=== PATIENT | male | born 1940 ===

== ENCOUNTER 2024-07-29 06:09 | Day surgery (SDC) | payer OTHER, SELFPAY ==
[2024-07-14 13:32] VITALS: BMI 24.4
[2024-07-14 14:31] LABS: Hematocrit 41.3 % (39.0-52.0); Hemoglobin 13.9 g/dL (13.0-18.0); Mean Corp Hgb Conc. 33.7 g/dL (33.0-37.0); Mean Corpuscular Hgb 30.4 pg (27.0-31.0); Mean Corpuscular Volume 90.4 fL (80.0-94.0); Mean Platelet Volume 10.5 fL (7.4-10.4); Platelet Count 219 10^3/uL (130-400); Red Blood Cell Count 4.57 10^6/uL (4.70-6.10); Red Cell Dist. Width 14.6 % (11.5-14.5); White Blood Cell Count 6.7 10^3/uL (4.8-10.8)
[2024-07-14 14:43] LABS: ALT (SGPT) 26 U/L (0-50); AST (SGOT) 31 U/L (17-59); Albumin 4.3 g/dl (3.5-5.0); Alkaline Phosphatase 57 U/L (38-126); Blood Urea Nitrogen 16 mg/dl (9-20); Calcium 9.1 mg/dl (8.4-10.2); Carbon Dioxide 23 mmol/L (22-30); Chloride 106 mmol/L (98-107); Estimated Creatinine Clearance 67 ml/min; Glucose 93 mg/dl (70-99); Potassium 4.6 mmol/L (3.5-5.1); Sodium 143 mmol/L (135-145); Total Bilirubin 0.6 mg/dl (0.2-1.3); Total Protein 6.9 g/dl (6.3-8.2); eGFR > 60.00
[2024-07-15 08:15] LABS: Glycohemoglobin (HgbA1c) 5.1 % (4.0-5.6)
[2024-07-23 09:54] VITALS: BMI 24.4
--- NOTE | 2024-07-27 10:19 | VNURNOTE ---
Patient is scheduled for an elective R TKA on 07/29/24- he reports he will stay overnight. Surgery will be by Dr Gaxiola. Spoke with patient prior to surgery. Introduced role of [facility] Liaison. Patient reports that he lives with his at [facility]. There is elevator access. No steps within apartment.
He has a rollator walker and cane. He states he will be given a rolling walker day of surgery.
He has never had VN services.
PCP is Dr Tish Guthrie.
Discussed post surgical plans.
Patient stated he will stay overnight and then go to outpt PT at [facility] in [place] on 08/03. Declining [facility] at this time. Liaison left contact number if plans change.
Patient states that his will be home with him and his daughter will pick him up day of surgery.
Plan: Outpt PT on 08/03
[2024-07-29] VITALS (14 sets, daily range): BP systolic 109–157; BP diastolic 63–98; PULSE 83; O2SAT 97; BMI 24.4
[2024-07-29] MEDS: TYLENOL 650 MG PO ×5 (07:05→23:14)
[2024-07-29] MEDS: VANCOCIN 200 IV ×2 (07:20→18:11)
[2024-07-29] MEDS: NEURONTIN 200 MG PO ×3 (10:07→21:19)
[2024-07-29] MEDS: FLOMAX 0.4 MG PO (10:07)
[2024-07-29] MEDS: ROXICODONE 5 MG PO ×2 (10:08→15:35)
[2024-07-29] MEDS: TYLENOL PO (10:17)
[2024-07-29] MEDS: NORMOSOL-R/PLASMALYTE-A 1000 IV (10:46)
--- NOTE | 2024-07-29 12:00 | PTCARENOTE ---
pt received from PACU, with PACU staff s/p rt TKA. pt is AAO x 3, c/o minor pain, refuses pain medicine. dressing to right knee is c/d/i with no visible drainage. sensation intact. SCD device initiated b/l
--- NOTE | 2024-07-29 13:34 | W.PN.ORTHO ---
Today's Communication / Plan
-
D/c when clinically stable.
Assessment
.
Distal Motor Intact: Yes
Dressing:
Small area of incisional bleeding at proximal part of dressing.
Assessment:
R knee OA s/p R TKA w/ Dr Gaxiola 07/29/24
DVT prophylaxis - ASA, b/l venous foot pumps
HTN - + parameters - monitor BP
CAD/NC s/p PCI w/ LAD stent 2020 � on Plavix and ASA
- Continue ASA but at 325 mg daily dosing x4 weeks for blood clot prevention
- Resume Plavix POD 2 if hemodynamically stable
RLE neuropathy and lumbar stenosis w/ chronic LBP - add Gabapentin
BPH w LUTS - monitor voids
- Add daily Flomax
MRSA + nasal swab pre-op - will add IV Vanco in addition to IV Ancef
- Continue nasal Mupirocin x2 weeks post-op
Dyslipidemia
Acute pancreatitis 2018
Migraines
SCC s/p MOHS
Dry macular degeneration
Anxiety
Did discuss Decadron for pain mgmt given ADR to Prednisone previously. He notes Prednisone reaction was remote. He reports to having an MISSAEL in the past and he did receive IV Decadron intra-op without issue. Given this, the patient feels
comfortable with trying Decadron 4 mg PO BID starting tonight. Will monitor for any ADRs
Plan
.
Surgery / Date: R TKA w/ Dr Gaxiola 07/29/24
DVT Prophylaxis: Aspirin
Activity:
Out of bed.
PT/OT
Discharge Plan: Home w/ Outpatient PT
Subjective
.
.:
Patient examined resting in bed.
R knee pain 'creeping up' but due for Oxycodone shortly.
Mild nausea post-procedure resolved.
Vital Signs and Labs
.
Vital Signs and Labs:
Lab Results
07/14/24 13:30
07/14/24 13:30
Temp Pulse Resp BP Pulse Ox
97.9 F 73 20 137/73 96
07/29/24 07:00 07/29/24 07:00 07/29/24 07:00 07/29/24 07:00 07/29/24 07:00
Physical Exam
-
HEENT: No pallor, cyanosis, or jaundice. Throat clear.
NECK: Supple. No JVD.
RESPIRATORY: Lungs clear to auscultation.
CVS: S1, S2 normal. RRR.�
ABDOMEN: Soft, non-tender. No distension.
EXTREMITIES: Strength equal, no calf pain with palpation/dorsiflexion. Calves soft.
SCRAP CHARGER: AOx3. No focal deficits. shoe puller grossly intact
[2024-07-29] MEDS: ANCEF 5 IV ×2 (14:32→23:13)
[2024-07-29] MEDS: LIDOCAINE 4% PATCH 2 PATCH TOPICAL (14:32)
[2024-07-29] MEDS: VITAMIN D3 (cholecalciferol) PO (15:21)
[2024-07-29] MEDS: ASPIRIN 325 MG PO (18:11)
[2024-07-29] MEDS: SENOKOT 17.2 MG PO (20:48)
[2024-07-29] MEDS: DECADRON 4 MG PO (20:49)
[2024-07-29] MEDS: COLACE 100 MG PO (20:49)
[2024-07-29] MEDS: BACTROBAN 2% OINTMENT 1 APPLIC NASAL (20:49)
[2024-07-29] MEDS: TORADOL 10 MG IV (21:18)
[2024-07-29] MEDS: PEPCID 20 MG PO (21:19)
[2024-07-29] MEDS: LIPITOR 40 MG PO (21:19)
[2024-07-29] MEDS: ROXICODONE 10 MG PO (23:17)
[2024-07-30 02:55] VITALS: BP 124/68
[2024-07-30] MEDS: TYLENOL 650 MG PO ×3 (03:07→12:10)
[2024-07-30 07:15] VITALS: BP 128/56
[2024-07-30] MEDS: ROXICODONE 5 MG PO (08:00)
[2024-07-30] MEDS: NEURONTIN 200 MG PO (08:01)
[2024-07-30] MEDS: VITAMIN D3 (cholecalciferol) 25 MCG PO (08:01)
[2024-07-30] MEDS: ASPIRIN 325 MG PO (08:02)
[2024-07-30] MEDS: DECADRON 4 MG PO (08:02)
[2024-07-30] MEDS: SENOKOT 17.2 MG PO (08:02)
[2024-07-30] MEDS: FLOMAX 0.4 MG PO ×2 (08:02→12:10)
[2024-07-30] MEDS: COLACE 100 MG PO (08:02)
[2024-07-30] MEDS: LIDOCAINE 4% PATCH 2 PATCH TOPICAL (08:03)
[2024-07-30] MEDS: BACTROBAN 2% OINTMENT 1 APPLIC NASAL (08:03)
[2024-07-30 09:20] VITALS: BP 116/62
--- NOTE | 2024-07-30 09:58 | W.PN.ORTHO ---
Today's Communication / Plan
-
Monitor incisional bleeding after TXA.
Await PT and OT recs.
D/c later today if clinically stable.
Assessment
.
Distal Motor Intact: Yes
Dressing:
Small areas of bleeding noted along incision line - will treat w/ TXA, pressure wrap (RICCARDO w/ ABDs).
Assessment:
R knee OA s/p R TKA w/ Dr Gaxiola 07/29/24
DVT prophylaxis - ASA, b/l venous foot pumps
HTN - + parameters - BPs stable
CAD/MD s/p PCI w/ LAD stent 2020 � on Plavix and ASA
- Continue ASA but at 325 mg daily dosing x4 weeks for blood clot prevention
- Resume Plavix POD 2 if remaining hemodynamically stable
RLE neuropathy and lumbar stenosis w/ chronic LBP - continue Gabapentin
BPH w/ LUTS - voiding but in small amounts post-op - not unusual for patient; does see Karli (urology) and did inquire about Flomax previously
- Given tolerability to Flomax, will Rx upon d/c
- Will encourage f/u w/ urology outpatient
MRSA + nasal swab pre-op - s/p IV Vanco in addition to IV Ancef
- Continue nasal Mupirocin x2 weeks post-op
Dyslipidemia
Acute pancreatitis 2018
Migraines
SCC s/p MOHS
Dry macular degeneration
Anxiety
Did discuss Decadron for pain mgmt given ADR to Prednisone previously. He notes Prednisone reaction was remote. He reports to having an MISSAEL in the past and he did receive IV Decadron intra-op without issue. Given this, the patient feels
comfortable with trying Decadron 4 mg PO BID -> update: pt tolerated Decadron well and without any visible ADRs. Will continue upon d/c.
Plan
.
Surgery / Date: R TKA w/ Dr Gaxiola 07/29/24
DVT Prophylaxis: Aspirin
Activity:
Out of bed.
PT/OT
Discharge Plan: Home w/ Outpatient PT
Subjective
.
.:
Patient resting comfortably in his chair.
R knee pain minimal w/ current pain meds.
Chronic urinary issues at baseline 2* BPH.
Eager for potential d/c today.
Vital Signs and Labs
.
Vital Signs and Labs:
Lab Results
07/14/24 13:30
07/14/24 13:30
Temp Pulse Resp BP Pulse Ox
98 F 61 15 128/56 97
07/30/24 07:15 07/30/24 08:05 07/30/24 07:15 07/30/24 08:05 07/30/24 07:15
Non-invasive Hgb result: 14
Physical Exam
-
HEENT: No pallor, cyanosis, or jaundice. Throat clear.
NECK: Supple. No JVD.
RESPIRATORY: Lungs clear to auscultation.
CVS: S1, S2 normal. RRR.
ABDOMEN: Soft, non-tender. No distension.
EXTREMITIES: Strength equal, no calf pain with palpation/dorsiflexion. Calves soft.
SURFACE SHIP USW SUPERVISOR: AOx3. No focal deficits. upholsterer outside grossly intact
--- NOTE | 2024-07-30 10:03 | CM ---
Met with pt at bedside
Pt reports he lives with his in independent living at [facility]; no steps to enter, FF set-up
Independent, active, ambulated with cane prior to admission, drives
DME - rolling walker, single point cane, rollator
SNF/HH - no past hx
Has ride home at discharge - daughter
PCP - Tish Guthrie
Pharm - [facility]
Pl[facility] to start [facility]. Has Rx
Plan - anticipate home with outpatient PT
[2024-07-30] MEDS: CYKLOKAPRON 1300 MG PO (10:09)
[2024-07-30 11:27] VITALS: BP 139/67
--- NOTE | 2024-07-30 11:59 | W.DS.TRANS ---
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
-
Discharge Instructions:
Sleep Apnea Risk Intermediate
Discharge Diagnosis/Procedures R knee OA s/p R TKA w/ Dr Gaxiola 07/29/24
Diet Other diet
Additional Diets Diabetic carb controlled x1 week for wound
healing/infection prevention
Activity As tolerated,With Walker
Driving Restrictions Not until seen by your Dr
Bathing Restrictions OK to Shower
Other Services PT
Wound Care Dressing to be removed 1 week post-surgery.
Instructions:
Stand-Alone Forms: Total Hip/Knee Replacement D/C
Changes to Home Medications: Yes
Discharge Medications:
DC Medications w/original date entered in [employer]
atorvastatin 40 mg tablet 40 mg PO HS 07/23/24
cholecalciferol (vitamin D3) 25 mcg (1,000 unit) tablet (Vitamin D3) 25 mcg PO DAILY 07/23/24
clopidogrel 75 mg tablet 75 mg PO DAILY 07/23/24
mecobalamin (vitamin B12) 1,000 mcg chewable tablet 1,000 mcg PO HS 07/23/24
nitroglycerin 0.4 mg sublingual tablet 0.4 mg sublingual Q5-15M PRN chest pain 07/23/24
vit C 250 mg-vit E 90 mg-zinc 40 mg-copper 1 [id number] capsule (PreserVision AREDS-2) 1 tab PO BID 07/23/24
acetaminophen 500 mg tablet (Tylenol Extra Strength) 1,000 mg (2 x 500 mg) PO Q6H #60 tabs 07/29/24
aspirin 325 mg tablet 325 mg PO DAILY #30 tabs 07/29/24
dexamethasone 4 mg tablet 4 mg PO Q12H Anti-inflammatory #7 tabs 07/29/24
docusate sodium 100 mg capsule 100 mg PO BID #30 caps 07/29/24
gabapentin 100 mg capsule 200 mg (2 x 100 mg) PO TID neuropathic pain #30 caps 07/29/24
lidocaine 4 % topical patch 2 patch topical DAILY #30 ea 07/29/24
lorazepam 0.5 mg tablet 0.5 mg PO DAILY PRN anxiety #1 tab 07/29/24
losartan 25 mg tablet 25 mg PO DAILY #1 tab 07/29/24
mupirocin 2 % topical ointment 1 applic intranasal BID #1 tube 07/29/24
ondansetron HCl 4 mg tablet 4 mg PO Q6H PRN nausea and vomiting #30 tabs 07/29/24
oxycodone 5 mg tablet 5 - 10 mg (1 - 2 x 5 mg) PO Q6H PRN moderate-severe pain #30 tabs 07/29/24
sennosides 8.6 mg tablet (Senna Laxative) 17.2 mg (2 x 8.6 mg) PO BID #30 tabs 07/29/24
tamsulosin 0.4 mg capsule 0.4 mg PO HS #30 caps 07/30/24
Home Medication Changes
acetaminophen 500 mg tablet (Tylenol Extra Strength) 1,000 mg (2 x 500 mg) PO Q6H #60 tabs 07/29/24
aspirin 325 mg tablet 325 mg PO DAILY #30 tabs 07/29/24
dexamethasone 4 mg tablet 4 mg PO Q12H Anti-inflammatory #7 tabs 07/29/24
docusate sodium 100 mg capsule 100 mg PO BID #30 caps 07/29/24
gabapentin 100 mg capsule 200 mg (2 x 100 mg) PO TID neuropathic pain #30 caps 07/29/24
lidocaine 4 % topical patch 2 patch topical DAILY #30 ea 07/29/24
mupirocin 2 % topical ointment 1 applic intranasal BID #1 tube 07/29/24 - continue for 2 weeks post-op
ondansetron HCl 4 mg tablet 4 mg PO Q6H PRN nausea and vomiting #30 tabs 07/29/24
oxycodone 5 mg tablet 5 - 10 mg (1 - 2 x 5 mg) PO Q6H PRN moderate-severe pain #30 tabs 07/29/24
sennosides 8.6 mg tablet (Senna Laxative) 17.2 mg (2 x 8.6 mg) PO BID #30 tabs 07/29/24
tamsulosin 0.4 mg capsule 0.4 mg PO HS #30 caps 07/30/24
Pending Results: No
[2024-07-30 12:32] VITALS: BP 125/63; PULSE 61; O2SAT 96
== END 2024-07-30 14:37 | disposition home or self-care (01) ==
LOC: SDS 06:09
PROVIDERS: ATTENDING PHYSICIAN Orthopaedic Surgery; FAMILY PHYSICIAN Internal Medicine Geriatric Medicine; REFERRING PHYSICIAN Internal Medicine Cardiovascular Disease
DX: M17.11 Unilateral primary osteoarthritis, right knee (principal)
CPT/HCPCS: 27447; 36415; 73560; 80053; 83036; 85027; 87070; 87147; 97110; 97116; 97162; 97166; C1713; C1776

== ENCOUNTER 2024-08-13 15:34 | Inpatient (IN) | payer OTHER, SELFPAY ==
[2024-08-13] VITALS (13 sets, daily range): BP systolic 120–137; BP diastolic 49–75; BMI 24.2; BMI 24.8
[2024-08-13 12:48] LABS: % Basophils 0.4 % (0-2); % Eosinophils 0.3 % (0-6); % Immature Granulocytes 0.4 % (0-0.5); % Lymphocytes 18.9 % (20.5-51.1); % Monocytes 6.6 % (1.7-9.3); % Neutrophils 73.4 % (42.2-75.2); Absolute Lymphocytes 1.9 10^3/uL (1.2-3.4); Absolute Monocytes 0.7 10^3/uL (0.1-0.6); Absolute Neutrophils 7.3 10^3/uL (1.4-6.5); Hematocrit 24.8 % (39.0-52.0); Hemoglobin 8.2 g/dL (13.0-18.0); Mean Corp Hgb Conc. 33.1 g/dL (33.0-37.0); Mean Corpuscular Hgb 30.8 pg (27.0-31.0); Mean Corpuscular Volume 93.2 fL (80.0-94.0); Mean Platelet Volume 9.2 fL (7.4-10.4); Nucleated Red Blood Cells % 0 % (-); Platelet Count 320 10^3/uL (130-400); Red Blood Cell Count 2.66 10^6/uL (4.70-6.10); Red Cell Dist. Width 17.6 % (11.5-14.5)
[2024-08-13 12:55] LABS: Blood Urea Nitrogen 29 mg/dl (9-20); Calcium 8.7 mg/dl (8.4-10.2); Carbon Dioxide 21 mmol/L (22-30); Chloride 105 mmol/L (98-107); Estimated Creatinine Clearance 89 ml/min; Glucose 103 mg/dl (70-99); Potassium 4.5 mmol/L (3.5-5.1); Sodium 138 mmol/L (135-145); eGFR > 60.00
[2024-08-13 13:30] LABS: ALT (SGPT) 30 U/L (0-50); AST (SGOT) 45 U/L (17-59); Albumin 3.7 g/dl (3.5-5.0); Alkaline Phosphatase 59 U/L (38-126); Direct Bilirubin 0.1 mg/dl (0.0-0.4); Total Bilirubin 0.8 mg/dl (0.2-1.3); Total Protein 6.1 g/dl (6.3-8.2)
--- NOTE | 2024-08-13 14:03 | CON.GI ---
Addendum entered and electronically signed by Jose Hubbard DO 08/13/24 17:20:
I saw and examined the patient.
The PASTEURIZER HELPER's note was reviewed and I agree with the note.
Comment: Mr Lopez is a 84 y.o male with past medical history of CAD (s/p stent, on plavix), choledocholithiasis (s/p ERCP, CCY), and recent RKA (on high dose ASA 325 mg and previous steroids) who presented to the ED with multiple episodes of
melena and symptomatic anemia. Last dose of plavix this AM. No other NSAIDs, does note taking ASA 325 mg q daily after his knee surgery and prior steroids (Dexamethasone). No prior history of GI bleeding in the past. Elevated BUN and Hgb 8s
concerning for non-variceal UGIB. HD-stable without compensatory tachycardia.
#Non-variceal, UGIB
Recommendations:
- Keep NPO
- Trend Hgb with serial CBC
- IV PPI 40 mg BiD
- Last dose of plavix this AM (08/13)
- Plan for diagnostic EGD tomorrow, 08/14/24, for further evaluation. Therapeutic intervention is limited given recent plavix (ie unable to perform cautery), however would still be helpful for prognostic purposes and potential intervention with
hemoclips if needed
- Avoidance of all NSAIDs
-Rest of care as outlined below
Original Note:
Consultation
-
Date/Time Consultation Requested: 08/13/24 1320
Date/Time Consultation Performed: 08/13/24 1400
Requesting Provider: Gabriel Serrato PA-C
Performing Provider: TONIE Newsome, Jose Hubbard DO
Reason for Consultation: anemia/weakness
Medical History
Chief Complaint / HPI
Chief Complaint: weakness
History of Present Illness:
Pt is a 84yo with hx CAD with prior stent on Plavix, prior PUD, colon polyps, prior ERCP for CBD stone, darling, BPH, rate bite fever with multiple recurrences, prior pancreatitis with unclear etiology, prior back surgery, with right TKR 07/30. He now
presents with weakness with noted hbg 13.9 on 07/14 pre op and now hbg 8.2 with BUN of 29. In review with patient he denies NSAID use with knee surgery except daily ASA 81mg was increased to 325mg daily. He also admits to several doses of
Dexamethasone after surgery but noted side effects with hiccups, sleep apnea and agitation with not completed course.
Pt currently admits to some nausea, decreased appetite, lightheadedness and black stool for 2 days. Pt with some bruising and swelling post TKR but now improving. He otherwise denies dysphagia, odynophagia, GERD, diarrhea, constipation, or red
stools. Pt with 2 stools for form over last 24 hours prior to admission.
Past Medical History
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
Past Surgical History: Cardiac (stent ), Cholecystectomy, Orthopedic (right TKR 07/29/24 , back surgery x 2 ), Tonsilectomy and Other (lens implant 1997, hernia repair)
Social History
Tobacco: Non-Smoker
Alcohol: Former (moderate ETOH 20 + years ago none currently)
Drug: Marijuana
Personal:
Living: With Family
Employment: Retired
Family History
Family History: Other (nom family hx GI malignancies )
Allergies / Home Medications
Allergy/AdvReac Type Severity Reaction Status Date / Time
ciprofloxacin Allergy Hallucinati Verified 07/29/24 06:54
ons
guaifenesin [From Mucinex D] Allergy Urinary Verified 07/29/24 06:54
Retention
haloperidol [From Haldol] Allergy Upper Body Verified 07/29/24 06:54
Paralysis
levofloxacin [From Levaquin] Allergy Hallucinati Verified 07/29/24 06:54
on
prednisone Allergy Syncope Verified 07/29/24 06:54
pseudoephedrine Allergy Urinary Verified 07/29/24 06:54
[From Mucinex D] Retention
red yeast rice Allergy Rash Verified 07/29/24 06:54
�Medication �Instructions �Recorded
atorvastatin 40 mg tablet 40 mg PO HS 07/23/24
cholecalciferol (vitamin D3) 25 25 mcg PO DAILY 07/23/24
mcg (1,000 unit) tablet (Vitamin
D3)
clopidogrel 75 mg tablet 75 mg PO DAILY 07/23/24
mecobalamin (vitamin B12) 1,000 1,000 mcg PO HS 07/23/24
mcg chewable tablet
nitroglycerin 0.4 mg sublingual 0.4 mg sublingual Q5-15M PRN chest 07/23/24
tablet pain
vit C 250 mg-vit E 90 mg-zinc 40 1 tab PO BID 07/23/24
mg-copper 1 [id number]
capsule (PreserVision AREDS-2)
acetaminophen 500 mg tablet 1,000 mg (2 x 500 mg) PO Q6H #60 07/29/24
(Tylenol Extra Strength) tabs
aspirin 325 mg tablet 325 mg PO DAILY #30 tabs 07/29/24
dexamethasone 4 mg tablet 4 mg PO Q12H Anti-inflammatory #7 07/29/24
tabs
docusate sodium 100 mg capsule 100 mg PO BID #30 caps 07/29/24
gabapentin 100 mg capsule 200 mg (2 x 100 mg) PO TID 07/29/24
neuropathic pain #30 caps
lidocaine 4 % topical patch 2 patch topical DAILY #30 ea 07/29/24
lorazepam 0.5 mg tablet 0.5 mg PO DAILY PRN anxiety #1 tab 07/29/24
losartan 25 mg tablet 25 mg PO DAILY #1 tab 07/29/24
mupirocin 2 % topical ointment 1 applic intranasal BID #1 tube 07/29/24
ondansetron HCl 4 mg tablet 4 mg PO Q6H PRN nausea and 07/29/24
vomiting #30 tabs
oxycodone 5 mg tablet 5 - 10 mg (1 - 2 x 5 mg) PO Q6H 07/29/24
PRN moderate-severe pain #30 tabs
sennosides 8.6 mg tablet (Senna 17.2 mg (2 x 8.6 mg) PO BID #30 07/29/24
Laxative) tabs
tamsulosin 0.4 mg capsule 0.4 mg PO HS #30 caps 07/30/24
Review of Systems
-
History Source: Patient and Family
Constitutional: Reports Other (decreased appetite )
EENT: Reports No Symptoms
Respiratory: Reports No Symptoms
Abdomen/GI: Reports Nausea and Black Stools
: Reports No Symptoms
Musculoskeletal: Reports Other (s/p TKR )
Skin: Reports Other (right knee bruising post replacement )
Neurological: Reports Weakness
Endocrine: Reports No Symptoms
Hematologic/Lymphatic: Reports Bleeding
Vital Signs
Temp Pulse Resp BP Pulse Ox
98.7 F 77 13 132/60 100
08/13/24 12:23 08/13/24 13:00 08/13/24 13:00 08/13/24 13:00 08/13/24 13:00
Physical Exam
Exam
General: Well Developed, Well Nourished and No Apparent Distress
HEENT: Normocephalic and Anicteric
Respiratory: Clear
Cardiac: Regular Rhythm
GI: Soft, Non Tender and Non Distended
Rectal: Hem Positive (black per review with ER)
Genito-urinary: No Costovertebral Tender
Musculoskeletal: No Clubbing and No Cyanosis
Skin: Warm and Dry
Neuro: Awake, Alert and AO x 3
Psych: Calm
Results
WBC 10.0 10^3/uL (4.8-10.8) 08/13/24 12:35
Hgb 8.2 g/dL (13.0-18.0) L 08/13/24 12:35
Hct 24.8 % (39.0-52.0) L 08/13/24 12:35
MCV 93.2 fL (80.0-94.0) 08/13/24 12:35
Plt Count 320 10^3/uL (130-400) 08/13/24 12:35
Absolute Neuts (auto) 7.3 10^3/uL (1.4-6.5) H 08/13/24 12:35
Sodium 138 mmol/L (135-145) 08/13/24 12:35
Potassium 4.5 mmol/L (3.5-5.1) 08/13/24 12:35
Chloride 105 mmol/L (98-107) 08/13/24 12:35
Carbon Dioxide 21 mmol/L (22-30) L 08/13/24 12:35
BUN 29 mg/dl (9-20) H 08/13/24 12:35
Creatinine 0.6 mg/dL (0.7-1.3) L 08/13/24 12:35
Calcium 8.7 mg/dl (8.4-10.2) 08/13/24 12:35
Total Bilirubin 0.8 mg/dl (0.2-1.3) 08/13/24 12:35
AST 45 U/L (17-59) 08/13/24 12:35
ALT 30 U/L (0-50) 08/13/24 12:35
Alkaline Phosphatase 59 U/L (38-126) 08/13/24 12:35
Diagnostic Image Results:
Prior GI Procedures:
completed in [place] and [place]
EGD: years ago with PUD
EGD: years ago for CBD stone
Colonoscopy: 7-8 in past for polyps last 2017 no further needed
Assessment / Plan
-
Pt is a 84yo with hx CAD with prior stent on Plavix, prior PUD, colon polyps, prior ERCP for CBD stone, darling, BPH, rate bite fever with multiple recurrences, prior pancreatitis with unclear etiology, prior back surgery, with right TKR 07/30. He now
presents with weakness with noted hbg 13.9 on 07/14 pre op and now hbg 8.2 with BUN of 29. In review with patient he denies NSAID use with knee surgery except daily ASA 81mg was increased to 325mg daily. He also admits to several doses of
Dexamethasone after surgery but noted side effects with hiccups, sleep apnea and agitation with not completed course.
-symptomatic anemia
-melena
-s/p TRK 07/30 with post -op steroid/increased ASA dose
-CAD with stent on Plavix prior to admission
-hx PUD
other med problems:
-hx colon polyps
-prior Darling/ERCP
-BPH
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
-pancreatitis x 1 etiology unclear
-multiple back surgery
PLAN:
etiology of black stools with anemia and elevated BUN related to PUD, increased ASA dose/several dose of steroid related to PUD vs some post-op blood loss vs other
t/c EGD will review timing with Dr. Hubbard and Dr. Augustine (rounding tomorrow) as Plavix last dose 08/13
no signs of aggressive GI bleeding 2 stools last 24 hours
trend hbg transfuse as needed
agree with PPI
ok for clear diet
family updated
NSAID avoidance--ok for ASA for now if needed
-
-
Thank you for consultation and allowing me to participate in the patient's care. Please call the [facility] physician during the after hours with any questions or concerns.
[2024-08-13] MEDS: NSS 1000 IV (14:12)
[2024-08-13] MEDS: PROTONIX IV 80 MG IV (14:13)
--- NOTE | 2024-08-13 14:27 | ED.GENMED ---
History of Present Illness
General
Chief Complaint: Abdominal Symptoms
Source: patient and family
Exam Limitations: none
Time Seen by Provider: 08/13/24 12:45
Nursing documentation reviewed up to this point in time: agreed with
History of Present Illness
History of Present Illness:
84-year-old male with Elvis history of hypertension hyperlipidemia previous heart attack currently on Plavix presenting to the emergency department today with concerns of black stool starting yesterday also notes that his blood pressure last night
was slightly low. Also had dyspnea on exertion over the past 2 days as well. Had knee surgery 2 weeks ago denies any issues at the time. Did take steroids no NSAIDs.
Review of Systems
Review of Systems
Allergies reviewed?: Yes
All Other Systems: ROS reviewed and negative except as documented in HPI and ROS
Phy Exam
Physical Exam
Physical Exam:
GENERAL: Alert , in no apparent distress
EYE: pupils equal and reactive
NECK: Supple, no significant adenopathy.
ENT: o/p clr, mmm.
CARDIAC: Regular rate and rhythm .
LUNGS: Clear breath sounds bilaterally, no acute respiratory distress, no wheezes/rales/rhonchi
ABDOMEN: Soft, without focal tenderness, no r/g, no cvat
Rectal; black stool guaiac positive
NEUROLOGICAL: Alert and oriented, no focal neuro deficits
SKIN: Warm and dry, skin intact.
MUSCULOSKELETAL: No edema, well perfused.
PSYCH: Normal and appropriate interaction.
Course
Orders/Labs/Results
Orders:
Orders
08/13/24 12:35
Complete Blood Count/With Diff Urgent
Comprehensive Metabolic Panel Urgent
Direct Bilirubin Urgent
08/13/24 13:13
Add On- LAB Urgent
Tests Added?: hepatic function panel
* Blood Bank Products Urgent
Blood Bank Products: *Packed RBC Leuko(PRBC's)
Quantity: 1
Transfuse Today: Yes
Reason: Bleeding
Pantoprazole [Protonix IV] 80 mg IV NOW STA
08/13/24 13:14
0.9% Sodium Chloride 1000 ml [Nss] 1,000 ml IV BOLUS
08/13/24 13:18
Type+Screen Urgent
08/13/24 14:08
ABO2 Urgent
BBK Wristband Number:
Associate notified that ABO2 has been ordered: [id number]
Date: 08/13/24
Time: 13:39
Director Of Public Health ID: [id number]
Abnormal Lab Results
08/13/24
12:35
RBC 2.66 L 10^6/uL
(4.70-6.10)
Hgb 8.2 L g/dL
(13.0-18.0)
Hct 24.8 L %
(39.0-52.0)
RDW 17.6 H %
(11.5-14.5)
Absolute Neuts (auto) 7.3 H 10^3/uL
(1.4-6.5)
Absolute Monos (auto) 0.7 H 10^3/uL
(0.1-0.6)
Lymphocytes % 18.9 L %
(20.5-51.1)
Carbon Dioxide 21 L mmol/L
(22-30)
BUN 29 H mg/dl
(9-20)
Creatinine 0.6 L mg/dL
(0.7-1.3)
Glucose 103 H mg/dl
(70-99)
Total Protein 6.1 L g/dl
(6.3-8.2)
08/13/24 12:35
08/13/24 12:35
Vital Signs
Initial and Last Documented VS:
Initial Vital Signs
Pulse Resp BP Pulse Ox
92 18 132/67 100
08/13/24 12:18 08/13/24 12:18 08/13/24 12:18 08/13/24 12:18
Last Documented Vital Signs
Temp Pulse Resp BP Pulse Ox
98.7 F 81 19 131/49 100
08/13/24 12:23 08/13/24 14:15 08/13/24 14:15 08/13/24 14:07 08/13/24 14:15
MDM/Problems Addressed
MDM/Problems Addressed:
84-year-old male presenting to the emergency department today with concerns of black stool since yesterday hypotensive last night shortness of breath with exertion over the past 2 days upon arrival vital signs are normal patient no distress does
have black stool. Hemoglobin obtained which was 8.21-month ago was 13.9. Concern for upper GI bleed BUN also elevated started on fluids written for a unit of blood and also started on Protonix. GI was immediately consulted. Admitted in stable
condition.
*Critical Care Note
Total Time (30-74mins, 75-104mins- exclusive of procedures): Not Applicable
comment:
Critical care statement: A total of 40 minutes of critical care time was provided for this patient. This includes management of unstable vital signs, evaluation of the patient at bedside, reviewing the patient's pertinent medical records, discussion
with consultants, review of old EKGs and review of pertinent medical records. This time with separate from time utilized to perform the aforementioned documented procedures
ED Attending Note
-
Portions of this chart may have been created with voice recognition software.� Occasional wrong word or��sound alike� substitutions may have occurred due to the inherent limitations of voice recognition software.
Discharge Plan
Departure
Patient Disposition: Admit
Date of Disposition: 08/13/24
Time of Disposition: 14:35
Admit to: ICU
Admit to doctor: Sahra
Presentation/result/management discussed w/ accepting MD/DO: Hospitalist
Patient with high blood pressure during this ER visit?: No
Condition: Good
Covid-19: Not Applicable
Discharge Problem:
UGIB (upper gastrointestinal bleed), Anemia
Prescriptions:
No Action
atorvastatin 40 mg Tablet
40 mg PO HS
clopidogrel 75 mg Tablet
75 mg PO DAILY
nitroglycerin 0.4 mg Tablet, Sublingual
0.4 mg SUBLINGUAL Q5-15M PRN (Reason: chest pain)
cholecalciferol (vitamin D3) [Vitamin D3] 25 mcg (1,000 unit) Tablet
25 mcg PO DAILY
PreserVision AREDS-2 250-90-40-1 mg Capsule
1 tab PO BID
mecobalamin (vitamin B12) 1,000 mcg Tablet,Chewable
1,000 mcg PO HS
aspirin 325 mg Tablet
325 mg PO DAILY Qty: 30 0RF
Rx Instructions:
Take daily x4 weeks for blood clot prevention; then resume Aspirin 81 mg daily.
lidocaine 4 % Adhesive Patch,Medicated
2 patch topical DAILY Qty: 30 0RF
Rx Instructions:
Over the counter. 12 hours on, 12 hours off.
Apply to sides of R knee/thigh.
docusate sodium 100 mg Capsule
100 mg PO BID Qty: 30 0RF
lorazepam 0.5 mg Tablet
0.5 mg PO DAILY PRN (Reason: anxiety) Qty: 1 0RF
gabapentin 100 mg Capsule
200 mg PO TID Qty: 30 0RF
oxycodone 5 mg Tablet
5 - 10 mg PO Q6H PRN (Reason: moderate-severe pain) Qty: 30 0RF
Rx Instructions:
1 tab for moderate pain, 2 if severe.
Dx total joint
sennosides [Senna Laxative] 8.6 mg Tablet
17.2 mg PO BID Qty: 30 0RF
mupirocin 2 % ointment
1 applic intranasal BID Qty: 1 0RF
acetaminophen [Tylenol Extra Strength] 500 mg tablet
1,000 mg PO Q6H Qty: 60 0RF
Rx Instructions:
DO NOT exceed >4000 mg daily.
ondansetron HCl 4 mg tablet
4 mg PO Q6H PRN (Reason: nausea and vomiting) Qty: 30 0RF
Rx Instructions:
Prescribed by surgeon's office pre-op.
dexamethasone 4 mg tablet
4 mg PO Q12H Qty: 7 0RF
Rx Instructions:
Restart night of discharge and continue every 12 hours until finished.
Take with food.
losartan 25 mg Tablet
25 mg PO DAILY Qty: 1 0RF
Rx Instructions:
HOLD IF systolic blood pressure <130 while on Oxycodone
tamsulosin 0.4 mg capsule
0.4 mg PO HS Qty: 30 0RF
Rx Instructions:
Take nightly to prevent urinary retention.
HOLD if systolic blood pressure <100.
Referrals:
Tish Guthrie MD [Family Provider] -
Interventions
Interventions:
*Risk Screen - Suicide Last Done: 08/13/24 12:31
*General Assessment Last Done: 08/13/24 12:29
*Neglect/Abuse Screening Last Done: 08/13/24 12:29
*ED COVID-19 Vaccine History Last Done: 08/13/24 12:23
NM-Srzokv-Bwihmzmolu Assessment Last Done: 08/13/24 12:31
Discharge Date and Time
Print Language: VINCENTIAN
--- NOTE | 2024-08-13 15:08 | HPS.HSE ---
Family Physician
-
Family Physician: Tish Guthrie
Chief Complaint
-
Black melanotic stool and fatigue.
History of Present Illness
Patient is a 84 years old male with history of coronary artery disease with MT and stent who is on dual antiplatelet therapy for life, recent right knee total arthroplasty who presents to emergency room with complaints of black stools for 2 days.
Patient noted to be generally weak. Denies any chest pain, shortness of breath, syncope. He has mild nausea, but denies abdominal pain or discomfort. He had 2 black bowel movements yesterday and 1 at the day of presentation. He has been on
aspirin and Plavix since his heart attack 4 years ago when he underwent PCI at [facility] with stent placement. He was told that he will be on Plavix for the rest of the life.
In the emergency room patient is hemodynamically stable with no evidence of tachycardia.
Medical History
Past Medical History
Past Medical History: Reports CAD (With history of MT and stent), HTN, Hypercholesterolemia and Other (BPH with history of retention)
Past Surgical History: Reports Other (Right total knee arthroplasty for severe osteoarthritis 07/30)
Social History
Tobacco: Non-smoker
Drug: None
Personal:
Living: With Family
Family History
Family History: Not pertinent
Allergies / Home Medications
Allergies reflects when Allergies were last updated in [employer].
Home Medications with original date entered in [employer]
Allergy/Medication List:
Allergies
Allergy/AdvReac Type Severity Reaction Status Date / Time
ciprofloxacin Allergy Hallucinati Verified 07/29/24 06:54
ons
guaifenesin [From Mucinex D] Allergy Urinary Verified 07/29/24 06:54
Retention
haloperidol [From Haldol] Allergy Upper Body Verified 07/29/24 06:54
Paralysis
levofloxacin [From Levaquin] Allergy Hallucinati Verified 07/29/24 06:54
on
prednisone Allergy Syncope Verified 07/29/24 06:54
pseudoephedrine Allergy Urinary Verified 07/29/24 06:54
[From Mucinex D] Retention
red yeast rice Allergy Rash Verified 07/29/24 06:54
Home Medications
atorvastatin 40 mg tablet 40 mg PO MOWEFR High Cholesterol 07/23/24
cholecalciferol (vitamin D3) 25 mcg (1,000 unit) tablet (Vitamin D3) 25 mcg PO DAILY Supplement 07/23/24
vit C 250 mg-vit E 90 mg-zinc 40 mg-copper 1 [id number] capsule (PreserVision AREDS-2) 1 tab PO BID Supplement 07/23/24
acetaminophen 500 mg tablet (Tylenol Extra Strength) 1,000 mg PO Q6H pain 08/13/24
aspirin 325 mg tablet 325 mg PO DAILY Blood Clot Prevention/Tx 08/13/24
atorvastatin 40 mg tablet (Lipitor) 20 mg PO SUTUTHSA High Cholesterol 08/13/24
clopidogrel 75 mg tablet (Plavix) 75 mg PO DAILY Blood Clot Prevention/Tx 08/13/24
docusate sodium 100 mg capsule 100 mg PO BIDPRN PRN constipation 08/13/24
lorazepam 0.5 mg tablet 0.5 mg PO BIDPRN PRN anxiety 08/13/24
losartan 25 mg tablet 25 mg PO DAILY Blood Pressure 08/13/24
tamsulosin 0.4 mg capsule 0.4 mg PO HS Urinary Issue 08/13/24
Review of Systems
-
A 12 point ROS was completed and negative except as noted: Yes
Constitutional: Reports Fatigue
Respiratory: Reports No Symptoms
Cardiac: Reports No Symptoms
Abdomen/GI: Reports See HPI
: Reports No Symptoms
Physical Exam
Vital Signs
Vital Signs
Temp Pulse Resp BP Pulse Ox
98.7 F 81 19 131/49 100
08/13/24 12:23 08/13/24 14:15 08/13/24 14:15 08/13/24 14:07 08/13/24 14:15
Physical Exam
General: Well Developed, Well Nourished and No Apparent Distress
HEENT: NormoCephalic, Moist mucous membranes and Atraumatic
Respiratory: Clear
Cardiac: S1/S2 and Regular Rhythm; No Murmur or Rub
GI: Soft, Non Tender, Non Distended and Normal Bowel Sounds; No Organomegaly
Rectal: Deferred by Provider
Musculoskeletal: No Clubbing, No Cyanosis and No Edema
Skin: No Rash
Neuro: Nonfocal/grossly intact
Laboratory Results
-
08/13/24 12:35
08/13/24 12:35
Laboratory Results
Total Bilirubin 0.8 mg/dl (0.2-1.3) 08/13/24 12:35
AST 45 U/L (17-59) 08/13/24 12:35
ALT 30 U/L (0-50) 08/13/24 12:35
Alkaline Phosphatase 59 U/L (38-126) 08/13/24 12:35
Impression/Plan
-
IMPRESSION:
Presentation with melena and fatigue.
Acute gastrointestinal hemorrhage suspect upper GI source.
Acute blood loss anemia.
Conditions prior to admission:
CAD/myocardial infarction status post left anterior descending stent 2020 on Plavix and aspirin G[employer]MENT [employer]ER.
Essential hypertension.
BPH with history of retention
Status post right knee arthroplasty 07/30
PLAN:
Acute gastrointestinal hemorrhage suspect upper GI source given presentation with melanotic stools and elevated BUN.
Hemodynamically stable
Acute blood loss anemia with hemoglobin down to 8.2 (13.9 on 07/30)
Intestinal hemorrhage most likely related to ongoing dual antiplatelet therapy.
Recent right total knee arthroplasty end of July 2024 was discharged on dexamethasone, could not complete full course (took only 2 doses) due to steroid intolerance.
GI consultation
Serial hemoglobin monitoring
Agree with transfusion of 1 unit of packed red blood cells given expected further drop with ongoing melena.
Hold aspirin and Plavix, last dose on day of presentation 08/13.
IV PPI for
Clear liquid diet and n.p.o. postmidnight for planned upper endoscopy.
CAD with history of MT and stent to LAD 2020.
Currently chest pain-free.
Obtain baseline ECG
Treat acute anemia.
Hold aspirin and Plavix given acute gastrointestinal hemorrhage.
On statin prior to admission.
Hypertension
Hold losartan given acute anemia and risk for hypotension
BPH
Monitor for retention
Continue Flomax with caution for hypotension.
[2024-08-13] MEDS: TYLENOL 1000 MG PO ×2 (17:09→22:07)
[2024-08-13 18:49] LABS: Hemoglobin 8.5 g/dL (13.0-18.0)
--- NOTE | 2024-08-13 19:20 | PTCARENOTE ---
pt received from ED to 3W room 322. Pt oriented to room, assessed, VS taken. Bed in lowest position, call lozano within reach. Continue plan of care
[2024-08-13] MEDS: PROTONIX IV 40 MG IV (21:51)
[2024-08-13] MEDS: FLUSH (NSS) 2 FLUSH IV (21:52)
[2024-08-13] MEDS: NSS (PRESERVATIVE FREE) 10 ML IV (21:52)
[2024-08-13] MEDS: FLOMAX 0.4 MG PO (22:08)
[2024-08-14] VITALS (8 sets, daily range): BP systolic 18–125; BP diastolic 47–69
[2024-08-14 01:05] LABS: Hemoglobin 8.7 g/dL (13.0-18.0)
[2024-08-14] MEDS: TYLENOL 1000 MG PO ×2 (05:52→17:25)
[2024-08-14 08:59] LABS: % Basophils 0.6 % (0-2); % Eosinophils 2.1 % (0-6); % Immature Granulocytes 0.4 % (0-0.5); % Lymphocytes 23.6 % (20.5-51.1); % Monocytes 8.3 % (1.7-9.3); Absolute Eosinophils 0.2 10^3/uL (0-0.7); Absolute Lymphocytes 1.7 10^3/uL (1.2-3.4); Absolute Monocytes 0.6 10^3/uL (0.1-0.6); Absolute Neutrophils 4.6 10^3/uL (1.4-6.5); Hematocrit 30.1 % (39.0-52.0); Mean Corp Hgb Conc. 33.2 g/dL (33.0-37.0); Mean Corpuscular Hgb 32.3 pg (27.0-31.0); Mean Corpuscular Volume 97.1 fL (80.0-94.0); Mean Platelet Volume 9.1 fL (7.4-10.4); Nucleated Red Blood Cells % 0.3 % (-); Platelet Count 295 10^3/uL (130-400); Red Cell Dist. Width 18.4 % (11.5-14.5); White Blood Cell Count 7.1 10^3/uL (4.8-10.8)
[2024-08-14] MEDS: NSS (PRESERVATIVE FREE) 10 ML IV (09:31)
[2024-08-14] MEDS: PROTONIX IV 40 MG IV (09:31)
[2024-08-14 09:37] LABS: Blood Urea Nitrogen 13 mg/dl (9-20); Calcium 8.5 mg/dl (8.4-10.2); Carbon Dioxide 20 mmol/L (22-30); Chloride 107 mmol/L (98-107); Estimated Creatinine Clearance 89 ml/min; Glucose 101 mg/dl (70-99); Potassium 4.1 mmol/L (3.5-5.1); Sodium 140 mmol/L (135-145); eGFR > 60.00
[2024-08-14] MEDS: TYLENOL PO (11:41)
--- NOTE | 2024-08-14 16:05 | PTCARENOTE ---
Received patient from PACU, s/p EGD. Patient AAOx3, no c/o pain. Family at bedside. Patient instructed to order a meal (regular diet).
--- NOTE | 2024-08-14 17:10 | W.DS.TRANS ---
DC Summary - [employer]
-
Discharge Instructions:
Discharge Diagnosis/Procedures Gastrointestinal hemorrhage
Acute blood loss anemia
Gastric ulcer.
CAD
Diet Regular
Blood Work CBC in 1 week
Instructions:
Stand-Alone Forms:
Changes to Home Medications: Yes
Discharge Medications:
DC Medications w/original date entered in [employer]
atorvastatin 40 mg tablet 40 mg PO MOWEFR High Cholesterol 07/23/24
cholecalciferol (vitamin D3) 25 mcg (1,000 unit) tablet (Vitamin D3) 25 mcg PO DAILY Supplement 07/23/24
vit C 250 mg-vit E 90 mg-zinc 40 mg-copper 1 [id number]-nqnrrd capsule (PreserVision AREDS-2) 1 tab PO BID Supplement 07/23/24
acetaminophen 500 mg tablet (Tylenol Extra Strength) 1,000 mg PO Q6H pain 08/13/24
atorvastatin 40 mg tablet (Lipitor) 20 mg PO SUTUTHSA High Cholesterol 08/13/24
clopidogrel 75 mg tablet (Plavix) 75 mg PO DAILY Blood Clot Prevention/Tx 08/13/24
docusate sodium 100 mg capsule 100 mg PO BIDPRN PRN constipation 08/13/24
lorazepam 0.5 mg tablet 0.5 mg PO BIDPRN PRN anxiety 08/13/24
losartan 25 mg tablet 25 mg PO DAILY Blood Pressure 08/13/24
tamsulosin 0.4 mg capsule 0.4 mg PO HS Urinary Issue 08/13/24
aspirin 81 mg capsule 81 mg PO DAILY #30 caps 08/14/24
pantoprazole 40 mg tablet,delayed release (Protonix) 40 mg PO BID #60 tabs 08/14/24
Home Medication Changes
Plavix on hold for 5 days.
Aspirin changed to 81 mg daily.
Initiated on Protonix
Pending Results: No
[2024-08-14] MEDS: PROTONIX 40 MG PO (17:25)
--- NOTE | 2024-08-14 17:33 | PTCARENOTE ---
Patient tolerated 100% of regular diet, ambulated to bathroom-voiding without difficulty. Patient is eager to go home, daughter at bedside to drive patient home.
== END 2024-08-14 18:03 | disposition home or self-care (01) | DRG 378 ==
LOC: 3 WEST ACU 15:34
PROVIDERS: Internal Medicine; ADMITTING PHYSICIAN Internal Medicine; CONSULT PHYSICIAN Student in an Organized Health Care Education/Training Program; EMERGENCY PHYSICIAN Emergency Medicine; FAMILY PHYSICIAN Internal Medicine Geriatric Medicine
PROC: 30233N1 Transfusion of Nonautologous Red Blood Cells into Peripheral Vein, Percutaneous Approach (ICD-10-PCS; 2024-08-13)
PROC: 0DJ08ZZ Inspection of Upper Intestinal Tract, Via Natural or Artificial Opening Endoscopic (ICD-10-PCS; 2024-08-14)
DX: K25.4 Chronic or unspecified gastric ulcer with hemorrhage (principal); D62 Acute posthemorrhagic anemia; D68.32 Hemorrhagic disorder due to extrinsic circulating anticoagulants; K44.9 Diaphragmatic hernia without obstruction or gangrene; R10.9 Unspecified abdominal pain; I10 Essential (primary) hypertension; N40.0 Benign prostatic hyperplasia without lower urinary tract symptoms; I25.10 Atherosclerotic heart disease of native coronary artery without angina pectoris; T45.515A Adverse effect of anticoagulants, initial encounter; Y92.9 Unspecified place or not applicable; E78.00 Pure hypercholesterolemia, unspecified; G47.30 Sleep apnea, unspecified; Z96.651 Presence of right artificial knee joint; I25.2 Old myocardial infarction; Z79.02 Long term (current) use of antithrombotics/antiplatelets; Z79.82 Long term (current) use of aspirin; Z95.5 Presence of coronary angioplasty implant and graft; Z87.11 Personal history of peptic ulcer disease; Z86.0100 Personal history of colon polyps, unspecified; Z85.828 Personal history of other malignant neoplasm of skin; Z80.0 Family history of malignant neoplasm of digestive organs; Z90.49 Acquired absence of other specified parts of digestive tract; Z88.1 Allergy status to other antibiotic agents; Z88.8 Allergy status to other drugs, medicaments and biological substances
CPT/HCPCS: 36430; 80048; 80053; 82248; 85018; 85025; 86850; 86900; 86901; 86920; 93005; 96361; 96374; 99291; P9016

== ENCOUNTER 2024-10-29 06:16 | Day surgery (SDC) | payer OTHER, SELFPAY | END 2024-10-29 12:20 | disposition home or self-care (01) | LOC: GI 06:16 | PROVIDERS: ATTENDING PHYSICIAN Internal Medicine | DX: D62 Acute posthemorrhagic anemia (principal); K44.9 Diaphragmatic hernia without obstruction or gangrene; K31.819 Angiodysplasia of stomach and duodenum without bleeding; K31.89 Other diseases of stomach and duodenum; K27.0 Acute peptic ulcer, site unspecified, with hemorrhage | CPT/HCPCS: 43239; 88305; 88342 ==